=== PATIENT | male | born 1975 | race Caucasian/White ===

== ENCOUNTER 2018-01-16 01:06 | Emergency (ER) | payer BC ==
[2018-01-16] MEDS ORDERED: Acetaminophen/HYDROcodone 325-10 MG Tab PO ONE (01:07)
--- NOTE | 2018-01-16 02:01 | EDM.PDOC ---
ED HPI GENERAL MEDICAL PROBLEM - General Chief Complaint: Lower Extremity Injury/Pain Stated Complaint: STEPPED INTO FISH HOLE AND HURT ANKLE [phone] Time Seen by Provider: 01/16/18 01:30 Source of Information: Reports: Patient History Limitations: Reports: No Limitations - History of Present Illness INITIAL COMMENTS - FREE TEXT/NARRATIVE: C/O pain to left ankle. States stepped [place] of [place] on [place] and stepped into fishing hole twisting ankle. AAble to initially bear weight but felt unstable. Admits ETOH tonight. Onset: Today Duration: Hour(s): (1 hour [employer]) Left Feet Pain Score (Numeric/FACES): 4 - Related Data Allergies Allergy/AdvReac Type Severity Reaction Status Date / Time fluoxetine [From Prozac] Allergy Hives Verified 01/16/18 01:16 Home Meds: Home Meds Fluticasone/Vilanterol [Breo Ellipta 100-25 MCG Inhalation Kit] 1 each IH DAILY 01/16/18 [History] PARoxetine [Paxil] 40 mg PO DAILY 01/16/18 [History] Past Medical History - Past Health History Medical/Surgical History: Denies Medical/Surgical History Social & Family History - Tobacco Use Smoking Status *Q: Never Smoker Second Hand Smoke Exposure: No - Recreational Drug Use Recreational Drug Use: No Review of Systems - Review of Systems Review Of Systems: ROS reveals no pertinent complaints other than HPI. ED EXAM, GENERAL - Physical Exam Exam: See Below Exam Limited By: No Limitations General Appearance: Alert, Mild Distress Eye Exam: Bilateral Eye: EOMI Ears: Normal External Exam Throat/Mouth: Normal Voice Neck: Full Range of Motion Respiratory/Chest: No Respiratory Distress Cardiovascular: Normal Peripheral Pulses, Regular Rate, Rhythm Peripheral Pulses: 2+: Posterior Tibial (L), Dorsalis Pedis (L) Extremities: Normal Capillary Refill, Joint Swelling (left ankle, no gross deformity), Limited Range of Motion. No: Normal Inspection, Normal Range of Motion Neurological: Alert, Oriented, Normal Cognition Psychiatric: Normal Affect, Normal Mood Skin Exam: Warm, Dry, Intact, Ecchymosis (left ankle) Course - Vital Signs Last Recorded V/S: Last Vital Signs Temp 97.4 F 01/16/18 01:12 Pulse 128 H 01/16/18 01:12 Resp 18 01/16/18 01:12 BP 117/76 01/16/18 01:12 Pulse Ox 98 01/16/18 01:12 - Orders/Labs/Meds Orders: Active Orders 24 hr Category Date Time Status Ankle Min 3V Lt [CR] Urgent Exams 01/16/18 01:21 Taken Meds: Medications Discontinued Medications Generic Name Dose Route Start Last Admin Trade Name [place] PRN Reason Stop Dose Admin Hydrocodone Bitart/Acetaminophen Confirm 01/16/18 03:04 01/16/18 03:12 [place] 325-10 Mg Administered 01/16/18 03:05 Not Given Dose 2 tab .ROUTE .STK-MED ONE - Radiology Interpretation Free Text/Narrative:: Left ankle: Comminuted fracture distal fibula - Re-Assessments/Exams Free Text/Narrative Re-Assessment/Exam: 01/16/18 03:[address] Vidal swanson. Plan to see patient end of week in [place]. Departure - Departure Time of Disposition: 01:54 Disposition: Home, Self-Care 01 Condition: Fair Clinical Impression: Fracture closed, fibula, shaft Qualifiers: Encounter type: initial encounter Fracture morphology: comminuted Fracture alignment: nondisplaced Laterality: left Qualified Code(s): S82.455A - Nondisplaced comminuted fracture of shaft of left fibula, initial encounter for closed fracture - Discharge Information Instructions: Crutch Use, Adult, [id number], Fibular Fracture Rehab-SportsMed Referrals: PCP,None [Primary Care Provider] - Forms: ED Department Discharge Additional Instructions: Non weight bearing , use crutches elevate extremity [facility] Wednesday to schedule appoint later in week with Dr. De La Rosa [phone] Ibuprofen 600-mg every 6 hours as needed for moderate pain ( take with food) Hydrocodone 10/325 one every 6 hours as needed for severe pain - My Orders Last 24 Hours: My Active Orders 01/16/18 01:21 Ankle Min 3V Lt [CR] Urgent - Assessment/Plan Last 24 Hours: My Active Orders 01/16/18 01:21 Ankle Min 3V Lt [CR] Urgent
[2018-01-16] MEDS ORDERED: Acetaminophen/HYDROcodone 325-10 MG Tab ONE (03:04)
== END 2018-01-16 03:08 | disposition home or self-care (01) ==
LOC: DL.ED 01:06
DX: S82.455A Nondisplaced comminuted fracture of shaft of left fibula, initial encounter for closed fracture (principal); Z88.8 Allergy status to other drugs, medicaments and biological substances; Z79.899 Other long term (current) drug therapy; X50.1XXA Overexertion from prolonged static or awkward postures, initial encounter
CPT/HCPCS: 73610; 99283; A9270

== ENCOUNTER 2022-08-06 05:12 | Day surgery (SDC) | payer OTHER ==
[~2022-08-06 05:12] MED LIST: Dextrose 5%-0.45% NaCl 1,000 ML IV SCH; Sodium Chloride 0.9% 10 ML Syringe FLUSH PRN; Sodium Chloride 0.9% 10 ML Syringe FLUSH SCH
[2022-08-06] MEDS ORDERED: Midazolam 1 MG/ML 2 ML SDV IV ONE ×7 (05:13→06:42)
[2022-08-06] MEDS ORDERED: fentaNYL 100 MCG/2 ML SDV IV ONE ×3 (05:13→06:29)
[2022-08-06] MEDS ORDERED: Midazolam 1 MG/ML 2 ML SDV ONE (06:13)
[2022-08-06] MEDS ORDERED: fentaNYL 100 MCG/2 ML SDV ONE (06:13)
== END 2022-08-06 08:40 | disposition home or self-care (01) ==
LOC: DL.ENDO 05:12
PROVIDERS: ATTEND Internal Medicine Gastroenterology
DX: K62.5 Hemorrhage of anus and rectum (principal); K64.8 Other hemorrhoids; E66.09 Other obesity due to excess calories; E78.5 Hyperlipidemia, unspecified; R73.9 Hyperglycemia, unspecified; Z88.8 Allergy status to other drugs, medicaments and biological substances; Z68.34 Body mass index [BMI] 34.0-34.9, adult
CPT/HCPCS: J2250; J3010; J7042